=== PATIENT | female | born 1995 | race Hispanic/Latino ===

== ENCOUNTER 2017-12-13 09:23 | Day surgery (SDC) | payer MEDICAID, OTHER ==
[2017-12-13] VITALS (7 sets, daily range): BP systolic 96–153; BP diastolic 61–100
[~2017-12-13 09:23] MED LIST: ACET-2247 PEG; AUD IH; CARAL PEG; CHOL100034 PEG; ESOM40CA PEG; IBUP100O20 PO; LACT1CAP69 PEG; LEVE1000 PEG; MONT10TA21 PEG; MUPI22O TP; OXCA300L PEG; OXYGEN NS; SODIUM CHLORIDE 0.9% 1000ML 1,000 ML IV ONE; [UNRECOGNIZED DRUG - CODE] OP
[2017-12-13] MEDS ORDERED: PROPOFOL 10 MG/ML 20ML VIAL IV ONE ×2 (10:19)
== END 2017-12-13 12:31 | disposition home or self-care (01) ==
LOC: DAH 09:23
PROVIDERS: ATTEND Internal Medicine Gastroenterology
DX: K29.50 Unspecified chronic gastritis without bleeding (principal); K21.0 Gastro-esophageal reflux disease with esophagitis; Z93.1 Gastrostomy status; K22.10 Ulcer of esophagus without bleeding; G80.9 Cerebral palsy, unspecified; G40.909 Epilepsy, unspecified, not intractable, without status epilepticus; R73.09 Other abnormal glucose; J45.909 Unspecified asthma, uncomplicated; Z88.8 Allergy status to other drugs, medicaments and biological substances
CPT/HCPCS: 43239; 88305; A4606; J2704 ×2; J7030